=== PATIENT | female | born 1990 | race Caucasian/White ===

== ENCOUNTER 2021-09-10 06:11 | Inpatient (IN) | payer OTHER ==
[~2021-09-10 06:11] MED LIST: Carboprost Tromethamine 250 MCG/1 ML Amp IM PRN; Citric Acid/Sodium Citrate Solution 30 ML Cup PO ONE; Lactated Ringers 1,000 ML IV SCH; Methylergonovine 0.2 MG Tab PO PRN; Ondansetron 4 MG/2 ML SDV IVPUSH PRN; Oxytocin 10 Units/1 ML SDV IM PRN; Oxytocin/Normal Saline 30 UNIT/500 ML BAG IV SCH; Sodium Chloride 0.9% 10 ML Syringe FLUSH PRN; Tranexamic Acid 1,000 MG in Sodium Chloride 0.9% 100 ML IV PRN; ceFAZolin 2 GM in Premix Bag 1 BAG IV ONE
[2021-09-10] MEDS ORDERED: Oxytocin/Normal Saline 60 UNIT/1,000 ML BAG ONE (06:22)
[2021-09-10] MEDS: Lactated Ringers 1,000 ML IV SCH ×4 (06:25→18:30)
--- NOTE | 2021-09-10 07:35 | OBOUT ---
DATE: 09/10/2021 STUDY: NST INDICATION FOR NST: Evaluation prior to . OBJECTIVE: Baseline heart rate 130 beats per minute. Moderate beat-to- beat variability. Accelerations noted. Glasco shows contractions every 7 to 10 minutes, irregular. INTERPRETATION: Category 1 reassuring and reactive NST. [facility] /[id number]
[2021-09-10] MEDS ORDERED: Tranexamic Acid 1,000 MG in Sodium Chloride 0.9% 100 ML IV PRN (09:05)
[2021-09-10] MEDS ORDERED: Naloxone 2 MG/2 ML Syringe IVPUSH PRN (09:05)
[2021-09-10] MEDS ORDERED: Ondansetron 4 MG/2 ML SDV IVPUSH PRN (09:05)
[2021-09-10] MEDS ORDERED: Misoprostol 400 MCG (4 X 100 MCG TAB) RECTAL PRN (09:05)
[2021-09-10] MEDS ORDERED: Acetaminophen/oxyCODONE 325-5 MG Tab PO PRN ×2 (09:05)
[2021-09-10] MEDS ORDERED: Methylergonovine 0.2 MG/1 ML Amp IM PRN (09:05)
[2021-09-10] MEDS ORDERED: Carboprost Tromethamine 250 MCG/1 ML Amp IM PRN (09:05)
[2021-09-10] MEDS ORDERED: diphenhydrAMINE 50 MG/ML SDV IVPUSH PRN (09:05)
[2021-09-10] MEDS ORDERED: ePHEDrine 50 MG/ML SDV IVPUSH PRN (09:05)
--- NOTE | 2021-09-10 09:42 | OR ---
DATE: 09/10/2021 PROCEDURE PERFORMED: Elective repeat section at term. SURGEON: Samantha Elizabeth MD. ASSISTANTS: Recorder Of Deeds: Kendal Granados MD. Second community program assistant: Irish Briscoe MS3. PREPROCEDURE DIAGNOSES: 1. 39 and 1/7 weeks gestation. 2. 3, para 2-0-0-2. 3. Blood type A positive, rubella immune, group B strep negative. 4. Bicornuate uterus. 5. History of section x2. POSTPROCEDURE DIAGNOSES: 1. 39 and 1/7 weeks gestation. 2. 3, para 2-0-0-2. 3. Blood type A positive, rubella immune, group B strep negative. 4. Bicornuate uterus. 5. History of section x2. 6. Breech extraction. 7. Repeat low transverse section without complications. 8. Very thin lower uterine segment, recommend future delivery at 37 weeks. CONSENT: Discussed with the patient and her indications, risks, benefits, and alternatives of repeat low transverse section including risk of injury to large blood vessels, nerves, veins, any internal organs and adjacent structures including but not limited to bowel, bladder, fallopian tubes, ovaries, uterus, and the baby itself. Discussed potential for blood loss requiring blood transfusion, as well as its inherent risks including contraction of blood borne disease or illness, potential for complications for mother and/or baby that would require transfer to a tertiary center. Their questions were answered and appropriate consent forms were signed and in the chart. PROCEDURE IN DETAIL: The patient was brought to the operating room and spinal anesthesia obtained. She was laid in the supine position with leftward tilt, and Beyer indwelling catheter was placed, abdomen prepped and draped in normal sterile fashion, skin tested and Pfannenstiel skin incision made with scalpel, carried down to the underlying fascia using cautery and traction. The fascia was incised in the midline and extended bilaterally using cautery. Superior fascial edge grasped with Aria's, tented up, and rectus muscles and previously adhesed omentum and peritoneum dissected off carefully with traction and cautery. Inferior fascial edge treated in similar manner. Rectus muscles in the midline with blunt finger traction and peritoneal cavity entered with blunt finger traction. Uterus shape verified as bicornuate and no significant adhesions. Scott retractor was placed and bladder flap created. Lower uterine segment was noted to be extremely thin. Therefore, hysterotomy site was cut superior to her previous scar with scalpel and extended bilaterally with Pan method. With the amniotic fluid sac presenting, it was ruptured with Allis forceps and opened further with finger dissection, right foot presenting, left foot found, and both legs brought out through the hysterotomy site together as a double footling breech with sacrum anterior. Baby was then rotated so that the left arm was brought across the chest and out the hysterotomy site. Baby then rotated so that the right arm was brought across the chest and out the hysterotomy site. While maintaining flexion and using fundal pressure, remainder of the infant was delivered easily thereafter. Baby was bulb suctioned, dried and stimulated while 3-vessel umbilical cord was doubly clamped and cut, and baby taken to the warmer for further evaluation. Cord blood sample obtained and placenta delivered by gentle cord traction and concomitant uterine massage and trailing membranes removed with ring forceps and dry lap sponges. Uterus completely evacuated of any products including being extra cautious to go up into the horns of the uterus to remove any retained membranes. Hysterotomy site was closed with a running locked suture of 0 Vicryl in the usual fashion. Excellent hemostasis obtained and 2nd layer was not performed due to the thinness of the lower uterine segment and achieving hemostasis and the patient is not planning future pregnancies. This layer was irrigated and hemostasis confirmed. Uterus was brought out of the abdomen, inspected. Bicornuate shape confirmed. Fallopian tubes and ovaries normal in appearance. Uterus placed back into the cavity and Scott retractor was removed. Paracolic gutters were cleared of all clots and debris and hemostasis of the hysterotomy site confirmed. The peritoneal layer and muscles were then brought together in the midline using a running stitch of 0 Vicryl. This layer was then irrigated and verified as hemostatic. Fascial layer then closed with a running stitch of 0 looped PDS in the usual fashion and subcutaneous tissue irrigated, cleared of any clots and debris and subcutaneous bleeders treated with cautery and there was some undermining to prevent puckering of the skin which was also controlled with cautery. Skin was then closed with a subcuticular stitch of 4-0 Monocryl and then Mastisol and Steri-Strips applied. Sterile dressing then placed. The patient tolerated procedure well. COMPLICATIONS: None. FINDINGS: Baby girl delivered by double footling breech extraction at 8:13 a.m., score of 8 and 10, weight 3915 g. EBL: 800. BEYER: 120 mL clear. FLUIDS: 1200 mL of crystalloids and 350 with Pitocin. DISPOSITION: Mother to go to the PACU, baby to the nursery and will be reunited as soon as possible. [facility] /[id number] EVER
[2021-09-10] MEDS: Ketorolac 30 MG/ML SDV IVPUSH SCH ×2 (12:35→19:23)
[2021-09-10] MEDS: Simethicone 80 MG Tab.Chew PO SCH ×3 (12:36→20:54)
[2021-09-10] MEDS: Prenatal Multivitamin with Calcium/Folic Acid/Iron Tab PO SCH (12:37)
[2021-09-10] MEDS: Docusate Sodium 100 MG Cap PO PRN (20:54)
[2021-09-11] MEDS: Ketorolac 30 MG/ML SDV IVPUSH SCH (01:15)
[2021-09-11] MEDS: Prenatal Multivitamin with Calcium/Folic Acid/Iron Tab PO SCH (09:55)
[2021-09-11] MEDS: Ibuprofen 800 MG Tab PO PRN ×2 (09:55→17:11)
[2021-09-11] MEDS: Simethicone 80 MG Tab.Chew PO SCH ×4 (09:55→19:52)
[2021-09-11] MEDS: Docusate Sodium 100 MG Cap PO PRN ×2 (09:55→19:52)
--- NOTE | 2021-09-11 18:41 | PN ---
DATE: 09/11/2021 Postop day 1 status post 2-time repeat low-transverse . SUBJECTIVE: The patient is tolerating diet and passing flatus. The Silver was just removed with good urine output overnight. The patient has not yet voided. Pain is well controlled. The patient is successfully. The patient denies fever, chills, headache, chest pain, shortness of breath, nausea, vomiting, diarrhea, or excessive vaginal bleeding. OBJECTIVE: Vital Signs: Temp 98.4, heart rate 85, BP 107/66, respiratory rate 16, and O2 sat 99% on room air. General: Well and in no acute distress. Heart: Regular rate and rhythm. S3 gallop is present. Lungs: Clear to auscultation bilaterally. Abdomen: Soft. Uterine fundus is firm and palpates 2 fingerbreadths below the level of the umbilicus. Dressing is clean, dry, and intact. Extremities: ITA hoses are on. No clonus. No edema. Neurologic: No deficits. LABORATORY DATA: Hemoglobin today is 11.9 and platelets 127,000. ASSESSMENT: 1. A 39-1/7 weeks' gestation. 2. 3, now para 3-0-0-3. 3. Blood type A positive, rubella immune, and group B streptococcus negative. 4. Bicornuate uterus. 5. History of section x2. 6. Breech extraction. 7. Status post repeat low-transverse section without complications. 8. Very thin lower uterine segment. 9. . 10.New heart murmur, S3 gallop. PLAN: We will continue to follow clinically and closely. Plan for discharge tomorrow. Appointments for Shelia and baby are made for Thursday, 09/16. Discharge prescriptions are written for ibuprofen, Percocet, and Colace. The patient was seen by myself and Dr. Walker. Assessment and plan are under the advisement of Dr. Walker. [facility] /[id number]
[2021-09-11] MEDS: Acetaminophen 325 MG Tab PO PRN (19:51)
[2021-09-12] MEDS: Acetaminophen 325 MG Tab PO PRN ×2 (00:42→09:00)
[2021-09-12] MEDS: Ibuprofen 800 MG Tab PO PRN ×2 (00:42→08:41)
[2021-09-12] MEDS: Simethicone 80 MG Tab.Chew PO SCH ×2 (00:54→08:40)
[2021-09-12] MEDS: Prenatal Multivitamin with Calcium/Folic Acid/Iron Tab PO SCH (08:41)
[2021-09-12] MEDS: Docusate Sodium 100 MG Cap PO PRN (08:41)
--- NOTE | 2021-09-12 13:17 | DISCH ---
ADMITTING DIAGNOSES: 1. 39 and 1/7 weeks gestation by last menstrual period. 2. G3, P2-0-0-2. 3. History of x2. 4. A positive, rubella immune, GBS negative. 5. History of depression. 6. Bicornuate uterus. 7. Hypothyroidism. 8. Breech delivery. DISCHARGE DIAGNOSES: 1. 39 and 1/7 weeks gestation by last menstrual period. 2. G3, now P3-0-0-3. 3. History of x3. 4. A positive, rubella immune, GBS negative. 5. History of depression. 6. Bicornuate uterus. 7. Hypothyroidism. 8. Breech delivery. 9. Thrombocytopenia (800 mL EBL). PROCEDURES: Repeat low transverse . BRIEF HISTORY: Shelia is a 31-year-old G3, now P3-0-0-3, presenting to [facility] at 39 and 1/7 weeks by last menstrual period for elective repeat low transverse . course was complicated only by Escherichia coli urinary tract infection in first trimester that was adequately treated with Keflex. History of 2 prior sections. History of depression, communicating hydrocephalus, bicornuate uterus, and hypothyroidism. labs include maternal blood type A positive. Hemoglobin 12.6, platelets 158,000. Rubella immune. GBS negative. Gonorrhea and chlamydia negative. Hepatitis B and C, HIV nonreactive. Syphilis negative. Antibody screen negative. HOSPITAL COURSE: Under intrathecal anesthesia, repeat low-transverse performed without complication. 800 mL estimated blood loss. Fetus delivered in footling breech with sacrum anterior at 8:18 a.m. on September 10, 2021. A vigorous with spontaneous cry, had airway bulb suctioned of clear amniotic fluid and normal secretions with scores of 9 and 9, weight of 3915 g. The patient's postop course has been routine. Pain well controlled with Tylenol, Motrin, and Percocet as needed. Tolerating oral intake. Silver removed at about 22 hours postop with clear urine. The patient began ambulating and voiding without issue. Passing flatus. No bowel movement prior to discharge. Bonding well with baby, without issue. Denies signs and symptoms of hemorrhage, infection, and preeclampsia. PHYSICAL EXAMINATION: Vital Signs: Temperature 98.2, heart rate 91, blood pressure 121/84, respiratory rate 16 with 99% O2 sat on room air. General: Alert. No distress. HEART: Regular rate and rhythm. No S3 gallop heard on auscultation this morning. LUNGS: Clear to auscultation bilaterally. ABDOMEN: Soft, nontender. Uterine fundus is firm and palpates 3 fingerbreadths below the level of the umbilicus. Wound dressing is clean, dry, and intact. Moderate dried serosanguineous drainage on steri-strips. No wound dehiscence, no surrounding erythema. EXTREMITIES: No edema. No clonus. NEUROLOGIC: No deficits. LABORATORY DATA: Admit hemoglobin 14.2, platelets 143. Discharge hemoglobin 11.9, platelets 127. DISCHARGE CONDITION: Good. DISPOSITION: Home with family. MEDICATIONS: Ibuprofen 800 every 8 hours as needed, Percocet every 4 to 6 hours as needed, Colace twice daily. Continue vitamin. Continue Zoloft. Continue levothyroxine. FOLLOWUP APPOINTMENT: At 1 p.m. on September [address] Walker. DISCHARGE INSTRUCTIONS: Pelvic rest for 6 weeks. Do not lift greater than [address] while taking pain medications. Keep operative site dressed, clean and dry. Return if you develop fever, pain, swelling, redness, operative site drainage, increased vaginal bleeding, nausea or vomiting. The patient was seen by myself and Dr. Mabry. Assessment and plan are under advisement of Dr. Mabry.Seen with medical student. Patient was personally seen and examined with the medical student practitioner student, Speedy Briscoe. I reviewed the noted scribed on my behalf and necessary changes have been made to reflect my opinion on the history, exam, assessment, and plan [facility] /[id number] MTDD
== END 2021-09-12 11:30 | disposition home or self-care (01) | DRG 787 ==
LOC: DL.MS 06:11 → OBSVTOIN 09:05
PROVIDERS: ADMIT Family Medicine; ATTEND Family Medicine
PROC: 10D00Z1 Extraction of Products of Conception, Low, Open Approach (ICD-10-PCS; principal; 2021-09-10)
PROC: 4A1HXCZ Monitoring of Products of Conception, Cardiac Rate, External Approach (ICD-10-PCS; 2021-09-10)
DX: O34.211 Maternal care for low transverse scar from previous cesarean delivery (principal); O99.12 Other diseases of the blood and blood-forming organs and certain disorders involving the immune mechanism complicating childbirth; Z3A.39 39 weeks gestation of pregnancy; Z37.0 Single live birth; O34.03 Maternal care for unspecified congenital malformation of uterus, third trimester; Q51.3 Bicornate uterus; O99.284 Endocrine, nutritional and metabolic diseases complicating childbirth; E03.9 Hypothyroidism, unspecified; D69.6 Thrombocytopenia, unspecified; O32.1XX0 Maternal care for breech presentation, not applicable or unspecified; Z20.822 Contact with and (suspected) exposure to COVID-19
CPT/HCPCS: 01961; 36415; 59025; 85025; 85027; 86850; 86900; 86901; 94010; A9270-GY; J0690; J1885; J2590; J7120; U0002